=== PATIENT | male | born 1975 | race Caucasian/White ===

== ENCOUNTER 2018-11-11 21:08 | Emergency (ER) | payer BC ==
[~2018-11-11] VITALS: Ht 177.8 cm; Wt 86.4 kg
[2018-11-11 21:34] VITALS: Ht 177.8 cm; Wt 86.4 kg
[2018-11-11] MEDS ORDERED: HYDROCODON-ACE1 EAC2 PO (23:27)
[2018-11-11 23:40] VITALS: BP 144/85
== END 2018-11-11 23:40 | disposition home or self-care (01) ==
LOC: D.ER 21:08
DX: S90.31XA Contusion of right foot, initial encounter (principal); W21.9XXA Striking against or struck by unspecified sports equipment, initial encounter; Y93.64 Activity, baseball; Y92.89 Other specified places as the place of occurrence of the external cause